=== PATIENT | male | born 1970 | race Caucasian/White ===

== ENCOUNTER 2019-10-30 19:08 | Inpatient (IN) | payer MEDICAID ==
[~2019-10-30] VITALS: Ht 175.3 cm; Wt 103.0 kg
[2019-10-30 19:14] VITALS: Ht 175.3 cm; Wt 103.0 kg
[2019-10-30 20:07] LABS: BASOPHIL % 0.5 % (0-2); PLATELET COUNT 208 x10^3mcL (130-400); RED CELL DISTRIBUTION WIDTH 13.6 % (11.5-14.5)
--- NOTE | 2019-10-30 20:09 | NUR ---
PATIENT AAOX4 PRESENTS TO THE ED FOR ONGOING CHEST PAIN >2 WEEKS. PT STS PAIN RADIATES TO LEFT ARM AND HAS INTERMITTENT N/V. PT DENIES NAUSEA DURING ASSESSMENT. BREATHING E/U, SKIN WARM DRY AND INTACT. NO OTHER SS OF DISTRESS NOTED. PT PLACED ON ALL MONITORS FOR FURTHER OBSERVATION. WILL CONTINUE TO MONITOR.
[2019-10-30 20:17] LABS: CALCIUM 8.6 mg/dL (8.5-10.1); CHLORIDE SERUM 105 mmol/L (98-107); GFR1 > 60 mL/min; GLUCOSE SERUM 92 mg/dL (74-106); POTASSIUM SERUM 4.1 mmol/L (3.5-5.1); SODIUM SERUM 142 mmol/L (136-145)
[2019-10-30 20:21] LABS: ALKALINE PHOSPHATASE 108 U/L (46-116); ALT/SGPT 32 U/L (16-63); AST/SGOT 23 U/L (15-37); BILIRUBIN TOTAL 0.45 mg/dL (0.20-1.00); TOTAL PROTEIN, SERUM 7.5 g/dL (6.4-8.2)
--- NOTE | 2019-10-30 20:57 | NUR ---
MEDICATED PER MD ORDERS- SEE EMR
[2019-10-30 21:03] LABS: CHOLESTEROL/HDL RATIO 5.4
[2019-10-30 21:13] LABS: AMPHETAMINE QUAL UR NONE DETECTED (See below)
--- NOTE | 2019-10-30 21:13 | NUR ---
REVIEWED LABS AND DIAGNOSTICS
--- NOTE | 2019-10-30 22:19 | NUR ---
MEDICAL STUDENT BEDSIDE OBTAINING PATIENT MEDICAL HISTORY.
[2019-10-30 22:37] LABS: T3 TOTAL 1.44 ng/mL
[2019-10-30 22:39] LABS: FREE T4 0.95 ng/dL (0.76-1.46); T4(THYROXINE) 8.6 ug/dL (4.7-13.3)
--- NOTE | 2019-10-30 22:49 | NUR ---
REPORT PROVIDED TO ROMI GRIMES - GAIL FOR CONTINUED CARE OF PATIENT.
--- NOTE | 2019-10-30 23:37 | NUR ---
REC'D PT FROM ED VIA [facility] ACCOMPANIED BY NURSE AND DAUGHTER. PT ABLE TO AMBULATE FROM GURNEY TO BED BY SELF. DAUGHTER PROVIDED SERBIAN TO [place]IZ[place] TRANSLATIONS. PT ADM WITH CC OF CP X 1 MONTH WITH NUMBING TO LUE. DENIES CP CURRENTLY BUT C/O 7/10 LUE PAIN. WILL MEDICATE APPROPRIATELY. AAOX4, SPEECH CLEAR, FOLLOWS COMMANDS. TELE 15, NSR. NO EDEMA NOTED. DENIES RESP DISTRESS OR SOB. BREATHING EVEN/UNLABORED ON RA. NO COUGH NOTED. ABD SOFT/ROUND. DENIES ABD PAIN, TENDERNESS, OR N/V. VOIDING FREELY. AMBULATORY. SKIN INTACT. IV TO RAC FLUSHED AND PATENT, SITE WNL. CALL LIGHT WITHIN REACH, BED AT LOWEST POSITION. ORIENTED TO DEVICES AND SURROUNDINGS. CALL LIGHT WITHIN REACH, BED AT LOWEST POSITION. WILL CONTINUE TO MONITOR.
--- NOTE | 2019-10-31 00:51 | NUR ---
DENIES PAIN TO MOISE AT THIS TIME. STILL HAS SOME NUMBING. PT'S AND DAUGHTER AT BEDSIDE. WILL CONTINUE TO MONITOR.
--- NOTE | 2019-10-31 02:07 | NUR ---
PT RESTING IN BED WITH EYES CLOSED. NO SIGNS OF DISTRESS NOTED. BREATHING EVEN/UNLABORED ON RA. CALL LIGHT WITHIN REACH, BED AT LOWEST POSITION. WILL CONTINUE TO MONITOR.
[2019-10-31 02:11] VITALS: BP 140/88
[2019-10-31 05:41] VITALS: BP 123/71
--- NOTE | 2019-10-31 07:40 | NUR ---
RECEIVED PT IN BED A/A/OX4 DENIES HERNANDEZ. RESP EVEN AND UNLABORED WITH CLEAR BS BILAT. DENIES ANY SOB/CP/PRESSURE AT THIS TIME. DOES REPORT SOME NUMBNESS AND TINGLING TO LT HAND, BUT REPORTS IMPROVEMENT FROM LAST NIGHT. 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 NO EDEMA NOTED WITH IV SL TO RAC. ABD SOFT, NONTENDER WITH ACTIVE SB X4. DENIES ANY N/V AT THIS TIME. CALL LIGHT IN REACH NEEDS ATTENDED TO.
[2019-10-31 07:46] LABS: BASOPHIL % 0.4 % (0-2); PLATELET COUNT 192 x10^3mcL (130-400); RED CELL DISTRIBUTION WIDTH 13.7 % (11.5-14.5)
[2019-10-31 08:35] LABS: CALCIUM 8.2 mg/dL (8.5-10.1); CARBON DIOXIDE 25.5 mmol/L (21-32); CHLORIDE SERUM 107 mmol/L (98-107); CREATININE SERUM 0.8 mg/dL (0.7-1.3); GFR1 > 60 mL/min; GLUCOSE SERUM 95 mg/dL (74-106); MAGNESIUM 2.1 mg/dL (1.8-2.4); PHOSPHOROUS 3.7 mg/dL (2.5-4.9); POTASSIUM SERUM 3.8 mmol/L (3.5-5.1); SODIUM SERUM 142 mmol/L (136-145)
[2019-10-31 09:09] VITALS: BP 133/87
[2019-10-31] MEDS ORDERED: IBU600 M2 PO (12:32)
--- NOTE | 2019-10-31 12:50 | NUR ---
PT RESTING AT THIS TIME. DENIES ANY DISCOMFORT. CALL LIGHT IN REACH NEEDS ATTENDED TO.
--- NOTE | 2019-10-31 12:56 | NUR ---
CANCELLATION REQUESTED FOR ECHOCARDIOGRAM
[2019-10-31 13:17] VITALS: BP 140/94
[2019-10-31 13:20] VITALS: BP 140/94
--- NOTE | 2019-10-31 15:09 | NUR ---
Discount pharmacy card and list to low cost medical clinics given to patient by Jarvis Gutierrez.
--- NOTE | 2019-10-31 16:30 | NUR ---
PT DAUGHTER PROVIDED WITH D/C HOME INSTRUCTIONS. GIVEN MEDICATION/PRESCRIPTION. INSTRUCTED TO F/U AT [facility] ON APPT SET UP FOR 11/08. GIVEN WRITEN EDUCATION PROVIDED BY ATTENDING. PT/DAUGHTER VERBALIZED UNDERSTANDING OF INSTRUCTIONS. TELE AND IV D/C'D CATHETER INTACT. PT AWAITING ARRIVAL OF TO DRIVE THEM HOME.
== END 2019-10-31 17:10 | disposition home or self-care (01) | DRG 203 ==
LOC: ED 19:08 → DU 21:46
PROVIDERS: Emergency Medicine; ADMIT Family Medicine
DX: M94.0 Chondrocostal junction syndrome [Tietze] (principal); E78.5 Hyperlipidemia, unspecified; R03.0 Elevated blood-pressure reading, without diagnosis of hypertension; Z68.36 Body mass index [BMI] 36.0-36.9, adult
CPT/HCPCS: 83880; 84439; G0378; J1885; Q0092

== ENCOUNTER 2019-11-19 01:20 | Emergency (ER) | payer MEDICAID ==
[~2019-11-19] VITALS: Ht 175.3 cm; Wt 103.9 kg
[~2019-11-19 01:20] MED LIST: IBU600 M2 PO
[2019-11-19 01:29] VITALS: Ht 175.3 cm; Wt 103.9 kg
[2019-11-19 06:18] VITALS: BP 132/87
== END 2019-11-19 06:18 | disposition home or self-care (01) ==
LOC: ED 01:20
DX: M75.91 Shoulder lesion, unspecified, right shoulder (principal); Z88.8 Allergy status to other drugs, medicaments and biological substances
CPT/HCPCS: J1885